=== PATIENT | male | born 1980 | race Two or more races ===

== ENCOUNTER 2018-07-10 14:08 | Emergency (ER) | payer BC ==
[2018-07-10 14:20] VITALS: BP 155/100
--- NOTE | 2018-07-10 14:41 | UC ---
General HPI - HPI Summary HPI Summary: C/O congestion and phelgm for the past 6-7 days. Intially had a fever that has since resolved. Increase in phelgm worse in the morning. Feels that the phelgm is in his chest. Some sinus tenderness and congestion but his congestion has overall improved. Coughing has improved. No SOB or CP. Did vomit initially but no further vomiting. No diarrhea. Has been doing sudafed, mucinex and saline nasal rinses with minimal improvement. PMHx: Type 1 DM Meds : Reviewed FMHx; NC - History of Current Complaint Chief Complaint: UCGeneralIllness Stated Complaint: CONGESTION Time Seen by Provider: 07/10/18 14:18 Pain Intensity: 6 - Allergy/Home Medications Allergies/Adverse Reactions: Allergies Allergy/AdvReac Type Severity Reaction Status Date / Time No Known Allergies Allergy Verified 07/10/18 14:21 Home Medications: Home Medications Insulin Glulisine [Apidra] 100 unit SQ DAILY WITH MEAL 07/10/18 [History Confirmed 07/10/18] PMH/Surg Hx/FS Hx/Imm Hx - Surgical History Surgical History: Yes Surgery Procedure, Year, and Place: septum - Social History Alcohol Use: Occasionally Substance Use Type: None Smoking Status (MU): Former Smoker When Did the Patient Quit Smoking/Using Tobacco: 2009 Household Exposure Type: Cigarettes Review of Systems All Other Systems Reviewed And Are Negative: Yes Is Patient Immunocompromised?: No - Comments Additional Review of Systems Comments: Per HPI Physical Exam Triage Information Reviewed: Yes Appearance: Well-Appearing Vital Signs: Initial Vital Signs Temp 98.3 F 07/10/18 14:15 Pulse 75 07/10/18 14:15 Resp 18 07/10/18 14:15 BP 155/100 07/10/18 14:15 Pulse Ox 99 07/10/18 14:15 Vital Signs Reviewed: Yes Eyes: Positive: Conjunctiva Clear ENT: Positive: Nasal congestion, Tonsillar swelling, Hoarse voice, Uvula midline Neck: Positive: Supple, Nontender Respiratory: Positive: Lungs clear, Normal breath sounds, No respiratory distress Cardiovascular: Positive: RRR, No Murmur Skin Exam: Normal Course/Dx - Course Course Of Treatment: This is a 37 yr old with congestion and phelgm. Assessment. Discussed viral syndrome and duration of course at length. No indication for antibiotics. Plan. Recommend trial of Afrin nasal spray for 2- 3 days. Also start Flonase as directed. Tessalon tabs for cough. Continue to encourage fluids and monitor blood sugar. If symptoms persist, worsen or develop persistent fevers, call primary for further evaluation - Differential Dx - Multi-Symptom Provider Diagnoses: viral syndrome Discharge - Sign-Out/Discharge Documenting (check all that apply): Patient Departure All imaging exams completed and their final reports reviewed: No Studies - Discharge Plan Condition: Good Disposition: HOME Prescriptions: Benzonatate CAP* [Tessalon 100 MG CAP*] 100 mg PO TID PRN #60 cap PRN Reason: Cough Fluticasone NASAL SPRAY 50MCG* [Flonase NASAL SPRAY 50MCG*] 2 spray BOTH NARES DAILY #1 btl Patient Education Materials: Viral Syndrome (ED) Referrals: Marcelino Evans MD [Primary Care Provider] - Additional Instructions: Recommend trial of Afrin nasal spray for 2- 3 days Also start Flonase as directed Tessalon tabs for cough Continue to encourage fluids and monitor blood sugar If symptoms persist, worsen or develop persistent fevers, call primary for further evaluation - Billing Disposition and Condition Condition: GOOD Disposition: Home
== END 2018-07-10 14:43 | disposition home or self-care (01) ==
LOC: UCEAST 14:08
DX: B34.9 Viral infection, unspecified (principal); E10.9 Type 1 diabetes mellitus without complications; Z87.891 Personal history of nicotine dependence
CPT/HCPCS: 99212; G0463

== ENCOUNTER 2018-10-01 10:51 | Emergency (ER) | payer BC ==
[2018-10-01 11:58] VITALS: BP 136/87
[2018-10-01 12:22] LABS: Influenza A Molecular NEGATIVE (Negative); Influenza B Molecular NEGATIVE (Negative)
--- NOTE | 2018-10-01 12:26 | UC ---
Respiratory Complaint HPI - HPI Summary HPI Summary: Patient is a 37 year old gentleman , who present today to the urgent care with upper respiratory symptoms for past 2-3 days. Onset on night/ Tuesday morning, reports some sinus pressure, throat pain and ears being full and congested. Also has nonproductive cough and postnasal drip. Denies any headaches His was diagnosed with flu earlier this week. He has had a flu shot in May No fevers at home Denies chest pain or shortness of breath . Denies any abdominal pain , nausea or vomiting , diarrhea or constipation. - History of Current Complaint Chief Complaint: UCGeneralIllness Stated Complaint: FLU SYMPTOMS Time Seen by Provider: 10/01/18 12:05 Hx Obtained From: Patient Pain Intensity: 9 - Allergies/Home Medications Allergies/Adverse Reactions: Allergies Allergy/AdvReac Type Severity Reaction Status Date / Time No Known Allergies Allergy Verified 10/01/18 11:58 PMH/Surg Hx/FS Hx/Imm Hx - Additional Past Medical History Additional PMH: Type 1 diabetes mellitus Hyperlipidemia Sinusitis Previously Healthy: Yes - Surgical History Surgical History: Yes Surgery Procedure, Year, and Place: septum - Social History Alcohol Use: Occasionally Substance Use Type: None Smoking Status (MU): Former Smoker When Did the Patient Quit Smoking/Using Tobacco: 2009 Household Exposure Type: Cigarettes Review of Systems All Other Systems Reviewed And Are Negative: Yes Constitutional: Positive: Negative Skin: Positive: Negative Eyes: Positive: Negative ENT: Positive: Sore Throat, Ear Ache - Bilateral ear fullness, Nasal Discharge, Sinus Congestion, Sinus Pain/Tenderness Respiratory: Positive: Cough - Nonproductive Cardiovascular: Positive: Negative Gastrointestinal: Positive: Negative Genitourinary: Positive: Negative Motor: Positive: Negative Neurovascular: Positive: Negative Musculoskeletal: Positive: Negative Neurological: Positive: Negative Psychological: Positive: Negative Is Patient Immunocompromised?: No Physical Exam - Summary Physical Exam Summary: Physical Exam: Const: Appears well. No signs of apparent distress present. Alert and oriented x 3. Musculo: Walks with a normal gait. Head/Face: Atraumatic, normocephalic on inspection. Eyes: EOMI and PERRLA in both eyes. Conjunctivae clear. No discharge noted ENT: Hearing normal, TM slightly erythematous on left and bulging when compared to the right side. No tenderness to palpation on maxillary and frontal sinus. Mild pharyngeal erythema, no exudates . Uvula is midline. There is tender anterior cervical lymphadenopathy noted. Respiratory: Respirations are unlabored. Lungs clear to auscultation bilaterally, no wheezing , rhonchi or rales noted . CVS: Regular rate and Rhythm, S1S2 normal , no murmurs identified. Extremities: Peripheral circulation is grossly normal. Pulses 2+ Abdomen : Soft non tender , nondistended , Bowel sounds present . No guarding , rebound tenderness or rigidity noted. Skin: No lesions or rash located on the upper extremities or on the lower extremities. Neuro: Cranial nerves II to XII intact, motor and sensory intact. DTR Intact bilaterally. Mood is normal. Affect is normal. Triage Information Reviewed: Yes Vital Signs: Initial Vital Signs Temp 97.2 F 10/01/18 11:55 Pulse 91 10/01/18 11:55 Resp 18 10/01/18 11:55 BP 136/87 10/01/18 11:55 Pulse Ox 99 10/01/18 11:55 Vital Signs Reviewed: Yes UC Diagnostic Evaluation - Laboratory O2 Sat by Pulse Oximetry: 99 Respiratory Course/Dx - Course Course Of Treatment: During the visit today, we obtained a rapid flu and strep test which were negative . We discussed the findings- Likely a viral syndrome, possible early sinusitis. Left ear is slightly bulging and red but that is likely viral. Possibility of early otitis media is minimal. I will prescribe medications to the pharmacy. (decongestant and nasal spray )as prescribed to the pharmacy.Hold off on filling the antibiotic(Augmentin) for next 2 days and fill it if no improvement until Tuesday. Follow up with your primary care doctor in 1 week. Patient expressed understanding . - Differential Dx/Diagnosis Provider Diagnosis: Viral syndrome, Sinusitis Discharge - Sign-Out/Discharge Documenting (check all that apply): Patient Departure All imaging exams completed and their final reports reviewed: No Studies - Discharge Plan Condition: Stable Disposition: HOME Prescriptions: Amoxicillin/Clavulanate TAB* [Augmentin TAB 875*] 875 mg PO BID 14 Days #28 tab Fluticasone NASAL SPRAY 50MCG* [Flonase NASAL SPRAY 50MCG*] 1 spray BOTH NARES DAILY #1 btl Loratadine/Pseudoephedrine [Claritin-D 12 Hour] 1 tab PO BID 7 Days #14 tab Patient Education Materials: Sinusitis (ED), Viral Syndrome (ED) Print Language: PALAUAN Referrals: Marcelino Evans MD [Primary Care Provider] - 3 Days Additional Instructions: Likely a viral syndrome, possible early sinusitis Please start taking her medications (decongestant and nasal spray )as prescribed to the pharmacy. Hold off on filling the antibiotic(Augmentin) for next 2 days and fill it if no improvement until Tuesday. Follow up with your primary care doctor in 1 week Patients blood pressure slightly high in Urgent care today , plan follow up with PCP for better control Return to Urgent care / ER if symptoms get worse. - Billing Disposition and Condition Condition: STABLE Disposition: Home
== END 2018-10-01 13:02 | disposition home or self-care (01) ==
LOC: UCEAST 10:51
DX: J32.9 Chronic sinusitis, unspecified (principal); B34.9 Viral infection, unspecified; E10.9 Type 1 diabetes mellitus without complications; Z87.891 Personal history of nicotine dependence
CPT/HCPCS: 87651; 99212; G0463

== ENCOUNTER 2019-04-30 14:49 | Emergency (ER) | payer BC ==
[2019-04-30 15:09] VITALS: BP 119/74
--- NOTE | 2019-04-30 15:10 | UC ---
Back Pain HPI - HPI Summary HPI Summary: 38 yo male presents with low back pain. He tells me that 1 week ago he woke up from a night's sleep with right lower back/SI pain. He thinks he slept awkwardly due to his CPAP. He took ibuprofen 800mg and his pain went completely away for a day, but came back the next day. Worse with movements. Denies numbness, tingling, saddle anesthesia, loss of bowel/bladder control. - History of Current Complaint Chief Complaint: UCBackPain Stated Complaint: LOW BACK PAIN/ RIGHT BACK PAIN Time Seen by Provider: 04/30/19 15:10 Hx Obtained From: Patient Onset/Duration: Sudden Onset Severity Initially: Moderate Severity Currently: Moderate Pain Intensity: 6 Pain Scale Used: 0-10 Numeric - Allergies/Home Medications Allergies/Adverse Reactions: Allergies Allergy/AdvReac Type Severity Reaction Status Date / Time No Known Allergies Allergy Verified 04/30/19 15:03 Home Medications: Home Medications Ibuprofen [Advil] 800 mg PO Q8HR PRN 04/30/19 [History Confirmed 04/30/19] PMH/Surg Hx/FS Hx/Imm Hx - Additional Past Medical History Additional PMH: Diabetes Allergies - Surgical History Surgical History: Yes Surgery Procedure, Year, and Place: deviated septum - Family History Known Family History: Positive: Non-Contributory - Social History Occupation: Employed Full-time Lives: With Family Alcohol Use: Occasionally Substance Use Type: None Smoking Status (MU): Former Smoker When Did the Patient Quit Smoking/Using Tobacco: 2009 Household Exposure Type: Cigarettes Review of Systems All Other Systems Reviewed And Are Negative: No Constitutional: Positive: Negative Skin: Positive: Negative Respiratory: Positive: Negative Cardiovascular: Positive: Negative Gastrointestinal: Positive: Negative Genitourinary: Positive: Negative Musculoskeletal: Positive: Other: - Low back pain Neurological: Positive: Negative Psychological: Positive: Negative Physical Exam - Summary Physical Exam Summary: GENERAL: NAD. WDWN. No pain distress. SKIN: No rashes, sores, lesions, or open wounds. NECK: Supple. FROM. Nontender. No lymphadenopathy. CHEST: CTAB. No r/r/w. No accessory muscle use. Breathing comfortably and in no distress. CV: RRR. Without m/r/g. Pulses intact. Cap refill <2seconds MSK: TTP over RIGHT lumbar paraspinal muscles and RIGHT SI. Pain with flexion and extension of spine. Positive SLR on right without radiation. Strength 5/5 B/ L LEs including dorsiflexion and plantar flexion. FROM B/L LEs. No edema. NEURO: Alert. Sensations intact B/L LEs L3-S1. Reflexes intact PSYCH: Age appropriate behavior. Triage Information Reviewed: Yes Vital Signs: Initial Vital Signs Temp 98.7 F 04/30/19 15:04 Pulse 84 04/30/19 15:04 Resp 18 04/30/19 15:04 BP 119/74 04/30/19 15:04 Pulse Ox 99 04/30/19 15:04 Vital Signs Reviewed: Yes Back Pain Course/Dx - Course Course Of Treatment: Suspect sciatica. Will rx for prednisone and flexeril and have him schedule with physical therapy. Advised to refrain from NSAIDs given his diabetes. Recommend f/u in 1 week with PCP for a recheck - Differential Dx/Diagnosis Provider Diagnosis: Right sided sciatica Discharge ED - Sign-Out/Discharge Documenting (check all that apply): Patient Departure All imaging exams completed and their final reports reviewed: No Studies - Discharge Plan Condition: Stable Disposition: HOME Prescriptions: Cyclobenzaprine TAB* [Flexeril 10 MG TAB*] 10 mg PO BID PRN #14 tab PRN Reason: Pain - Moderate predniSONE TAB* [Deltasone 20 MG TAB*] 40 mg PO DAILY #8 tab Patient Education Materials: Sciatica (ED), Piriformis Syndrome (ED), Lower Back Exercises (ED) Referrals: Marcelino Evans MD [Primary Care Provider] - 1 Week Additional Instructions: If you develop a fever, shortness of breath, chest pain, new or worsening symptoms - please call your PCP or go to the ED immediately. May continue taking tylenol for discomfort as directed I recommend that you call Physical Therapy to schedule an appointment for further treatment of your back pain Please try the flexeril at bedtime first, as this may make you drowsy. Do not drive while taking this medication. - Billing Disposition and Condition Condition: STABLE Disposition: Home
== END 2019-04-30 15:37 | disposition home or self-care (01) ==
LOC: UCEAST 14:49
DX: M54.5 Low back pain (principal); E11.9 Type 2 diabetes mellitus without complications; Z87.891 Personal history of nicotine dependence
CPT/HCPCS: 99212; G0463